=== PATIENT | male | born 1960 | race Caucasian/White ===

== ENCOUNTER 2023-04-25 01:25 | Inpatient (IN) | payer OTHER ==
[2023-04-25] MEDS ORDERED: SODIUM CHLORIDE 0.9% 500 ML INFUS.BAG IV ONE (01:26)
[2023-04-25] MEDS ORDERED: dilTIAZem HCL 50 MG/10 ML - 10 ML VIAL IVPUSH ONE (01:26)
[2023-04-25] MEDS ORDERED: FOLIC ACID INJECTION - 1 MG, THIAMINE HCL 100 MG, MULTIVIT INJECTION ADULT 10 ML in SOD... IVPB ONE ×2 (01:28→02:30)
[2023-04-25] MEDS ORDERED: dilTIAZem HCL 125 MG/25 ML - 25 ML VIAL ONE (01:28)
[2023-04-25] MEDS ORDERED: MAGNESIUM SULF 50% (8.12 MEQ/2 ML-1 GM VIAL) IVPB ONE (01:28)
[2023-04-25] MEDS ORDERED: ASPIRIN 300 MG SUPP.RECT RC ONE (01:29)
[2023-04-25] MEDS ORDERED: LORazepam 2 MG/ML SDV VIAL IVPUSH ONE ×3 (01:30→04:32)
[2023-04-25 01:45] LABS: BASO % 0.7 % (0-2.0); EOS % 5.3 % (0-4.5); HEMATOCRIT 40.9 % (35.4-49); HEMOGLOBIN 13.7 GM/dL (11.7-16.9); LYMPH % 12.8 % (8-40); MCH 29.8 pg (25.7-33.7); MCHC 33.6 g/dl (32.0-35.9); MEAN CELL VOLUME 88.6 fl (80-96); MEAN PLT VOLUME 6.6 fl (7.5-11.1); MONO % 6.5 % (3.8-10.2); NEUT % 74.7 % (42.8-82.8); PLATELET COUNT 326 10^3/uL (134-434); RBC 4.62 M/mm3 (4.00-5.60); RDW 13.1 % (11.9-15.9); WHITE BLOOD COUNT 13.7 K/mm3 (4.0-10.0)
[2023-04-25 01:52] LABS: INR 1.02 (0.83-1.09); PROTHROMBIN TIME (PATIENT) 11.8 SEC (9.7-13.0)
[2023-04-25 02:10] LABS: ARTERIAL BLD GAS O2 SATURATION 98.2 % (95-98); ARTERIAL BLOOD GAS PO2 152.2 mmHg (80-100)
[2023-04-25 02:12] LABS: ARTERIAL BLOOD GAS pH 7.108 (7.350-7.450)
[2023-04-25 02:13] LABS: CHLORIDE 91 mmol/L (98-107); POTASSIUM 4.6 mmol/L (3.5-5.1)
[2023-04-25 02:15] LABS: ALBUMIN 3.6 g/dl (3.4-5.0); CALCIUM 9.4 mg/dL (8.5-10.1)
[2023-04-25 02:16] LABS: BLOOD UREA NITROGEN 14.9 mg/dL (7-18); CO2 18 mmol/L (21-32); GLUCOSE,RANDOM 198 mg/dL (74-106)
[2023-04-25 02:18] LABS: SGPT/ALT 29 U/L (13-61)
[2023-04-25 02:19] LABS: CREATININE 1.1 mg/dL (0.55-1.3)
[2023-04-25 02:20] LABS: BILIRUBIN,TOTAL 0.3 mg/dL (0.2-1); TOT PROT 7.2 g/dl (6.4-8.2)
[2023-04-25 02:21] LABS: ALK PHOS 137 U/L (45-117)
[2023-04-25 02:31] LABS: ANION GAP 19 MMOL/L (8-16); SGOT/AST 23 U/L (15-37); SODIUM 128 mmol/L (136-145)
[2023-04-25 03:02] LABS: LACTIC ACID 8.7 mmol/L (0.4-2.0)
[2023-04-25 04:08] LABS: EPI CELLS 6 /uL (0-25.1); HYALINE CASTS 0 /uL (0-3.1); URINE APPEARANCE CLEAR; URINE BACTERIA 14 /uL (0-1359); URINE BILIRUBIN NEGATIVE (NEGATIVE); URINE COLOR YELLOW; URINE GLUCOSE (UA) 3+ (NEGATIVE); URINE KETONE TRACE (NEGATIVE); URINE LEUK ESTERASE NEGATIVE (NEGATIVE); URINE NITRITE NEGATIVE (NEGATIVE); URINE PROTEIN 2+ (NEGATIVE); URINE RBC 9 /uL (0-23.9); URINE WBC 11 /uL (0-25.8)
[2023-04-25] MEDS ORDERED: ACETAMINOPHEN 325 MG TABLET (FP) PO PRN (05:08)
[2023-04-25] MEDS ORDERED: INSULIN REGULAR HUMAN 100 UNITS/ML *VIAL* (FOR IVP) IVPUSH ONE (05:40)
[2023-04-25] MEDS ORDERED: INSULIN REGULAR 100 UNITS in SODIUM CHLORIDE 99 ML IVPB SCH (05:45)
[2023-04-25] MEDS ORDERED: DEXTROSE 5%-0.45% SALINE 1,000 ML IV SCH (05:45)
[2023-04-25] MEDS ORDERED: METOPROLOL TARTRATE 5 MG/5 ML VIAL IVPUSH STA (05:52)
[2023-04-25 05:56] LABS: LACTIC ACID 2.3 mmol/L (0.4-2.0)
[2023-04-25 07:04] LABS: HEMATOCRIT 39.6 % (35.4-49); MCH 29.6 pg (25.7-33.7); MCHC 32.8 g/dl (32.0-35.9); MEAN CELL VOLUME 90.5 fl (80-96); MEAN PLT VOLUME 6.8 fl (7.5-11.1); PLATELET COUNT 250 10^3/uL (134-434); RBC 4.37 M/mm3 (4.00-5.60)
[2023-04-25 07:07] LABS: ARTERIAL BLD GAS O2 SATURATION 91.2 % (95-98); ARTERIAL BLOOD GAS BASE EXCESS -8.1 mmol/L (-2-2); ARTERIAL BLOOD GAS PO2 70.9 mmHg (80-100); ARTERIAL BLOOD GAS pH 7.234 (7.350-7.450)
[2023-04-25 07:09] LABS: INR 1.01 (0.83-1.09); PROTHROMBIN TIME (PATIENT) 11.7 SEC (9.7-13.0)
[2023-04-25 07:12] LABS: ACTIVATED PTT 30.1 SECONDS (25.2-36.5)
[2023-04-25] MEDS ORDERED: HEPARIN NA (PORCINE) 5,000 UNITS/ML 1ML VIAL IVPUSH PRN ×2 (07:52)
[2023-04-25] MEDS: HEPARIN INFUSION - 25,000 UNITS/500 ML INFUS.BAG IVPB SCH ×2 (08:21→22:28)
[2023-04-25] MEDS: ATORVASTATIN CA 80 MG TABLET (FP) PO SCH (08:27)
[2023-04-25] MEDS ORDERED: INSULIN (NOVOLOG) ASPART 100 UNITS/ML 10ML VIAL ONE ×4 (08:51→23:33)
[2023-04-25] MEDS: INSULIN SLIDING SCALE (NOVOLOG) 1 VIAL SQ SCH ×4 (08:55→23:41)
[2023-04-25] MEDS: levETIRAcetam 500 MG/5 ML INJECTION VIAL IVPB SCH ×3 (08:57→21:29)
[2023-04-25] MEDS: DEXTROSE 5%-LACTATED RINGERS 1,000 ML IV SCH (08:57)
[2023-04-25 09:12] LABS: ANISOCYTOSIS 0; MACROCYTOSIS 0
[2023-04-25 09:14] LABS: POTASSIUM 5.1 mmol/L (3.5-5.1)
[2023-04-25 09:16] LABS: CALCIUM 8.1 mg/dL (8.5-10.1)
[2023-04-25 09:17] LABS: ALBUMIN 3.2 g/dl (3.4-5.0); MAGNESIUM 1.4 mg/dL (1.8-2.4)
[2023-04-25 09:20] LABS: CREATININE 0.9 mg/dL (0.55-1.3); PHOSPHOROUS 3.6 mg/dL (2.5-4.9)
[2023-04-25 09:21] LABS: BILIRUBIN,TOTAL 0.4 mg/dL (0.2-1); TOT PROT 6.6 g/dl (6.4-8.2)
[2023-04-25 09:25] LABS: N-TERMINAL BNP 783.1 pg/ml (5-125)
[2023-04-25] MEDS: CEFTRIAXONE 1 GM in DEXTROSE 5%-WATER - 50 ML IVPB SCH (09:25)
[2023-04-25] MEDS: ASPIRIN 81 MG CHEWABLE TABLETS PO SCH (09:26)
[2023-04-25] MEDS ORDERED: CLOPIDOGREL BISULFATE 75 MG TABLET (FP) PO ONE (09:30)
[2023-04-25] MEDS: METOPROLOL TARTRATE 25 MG TABLET (FP) PO SCH ×2 (09:33→21:29)
[2023-04-25] MEDS ORDERED: ENOXAPARIN NA (PORCINE) 40 MG/0.4 ML DISP.SYRIN SQ SCH (10:00)
[2023-04-25] MEDS ORDERED: MAGNESIUM SULFATE IN WATER 2 GM/50 ML IVPB IVPB ONE (10:30)
[2023-04-25] MEDS: NICOTINE 21 MG/24 HOURS TOPICAL PATCH TD SCH (12:42)
[2023-04-25] MEDS: THIAMINE HCL 200 MG/2 ML VIAL IVPB SCH (13:00)
[2023-04-25] MEDS: MUPIROCIN 2% TOPICAL OINTMENT FOR DECOLONIZATION NS SCH ×2 (19:01→21:45)
[2023-04-25] MEDS: CHLORHEXIDINE GLUCONATE 4% CLEANSER FOR DECOLONIZATION TP SCH (21:29)
[2023-04-26] MEDS: DEXTROSE 5%-LACTATED RINGERS 1,000 ML IV SCH ×3 (03:34→17:42)
[2023-04-26] MEDS ORDERED: INSULIN (NOVOLOG) ASPART 100 UNITS/ML 10ML VIAL ONE ×2 (05:46→11:35)
[2023-04-26] MEDS: INSULIN SLIDING SCALE (NOVOLOG) 1 VIAL SQ SCH ×4 (05:48→23:09)
[2023-04-26] MEDS ORDERED: DEXMEDETOMIDINE PREMIX 400 MCG/100 ML BAG IVPB SCH (07:00)
[2023-04-26 07:09] LABS: POTASSIUM 4.4 mmol/L (3.5-5.1)
[2023-04-26 07:10] LABS: CALCIUM 8.7 mg/dL (8.5-10.1)
[2023-04-26 07:11] LABS: MAGNESIUM 1.5 mg/dL (1.8-2.4)
[2023-04-26 07:13] LABS: ALBUMIN 3.1 g/dl (3.4-5.0); BLOOD UREA NITROGEN 8.9 mg/dL (7-18)
[2023-04-26] MEDS ORDERED: DEXMEDETOMIDINE PREMIX 400 MCG/100 ML BAG IVPB ONE (07:13)
[2023-04-26 07:14] LABS: BASO % 0.1 % (0-2.0); CREATININE 0.7 mg/dL (0.55-1.3); EOS % 0.8 % (0-4.5); HEMATOCRIT 34.8 % (35.4-49); HEMOGLOBIN 11.7 GM/dL (11.7-16.9); LYMPH % 6.6 % (8-40); MCH 30.4 pg (25.7-33.7); MCHC 33.7 g/dl (32.0-35.9); MEAN CELL VOLUME 90.2 fl (80-96); MEAN PLT VOLUME 7.5 fl (7.5-11.1); MONO % 5.1 % (3.8-10.2); NEUT % 87.4 % (42.8-82.8); PLATELET COUNT 249 10^3/uL (134-434); RBC 3.86 M/mm3 (4.00-5.60)
[2023-04-26 07:16] LABS: PHOSPHOROUS 2.6 mg/dL (2.5-4.9); TOT PROT 6.4 g/dl (6.4-8.2)
[2023-04-26 07:17] LABS: BILIRUBIN,TOTAL 0.7 mg/dL (0.2-1)
[2023-04-26] MEDS: LORazepam 2 MG/ML SDV VIAL IVPUSH PRN ×2 (07:17→17:30)
[2023-04-26] MEDS: CEFTRIAXONE 1 GM in DEXTROSE 5%-WATER - 50 ML IVPB SCH (09:24)
[2023-04-26] MEDS: CLOPIDOGREL BISULFATE 75 MG TABLET (FP) PO SCH (09:26)
[2023-04-26] MEDS: ASPIRIN 81 MG CHEWABLE TABLETS PO SCH (09:26)
[2023-04-26] MEDS: METOPROLOL TARTRATE 25 MG TABLET (FP) PO SCH (09:26)
[2023-04-26] MEDS: levETIRAcetam 500 MG/5 ML INJECTION VIAL IVPB SCH (09:27)
[2023-04-26] MEDS: THIAMINE HCL 200 MG/2 ML VIAL IVPB SCH (09:27)
[2023-04-26] MEDS: NICOTINE 21 MG/24 HOURS TOPICAL PATCH TD SCH (09:27)
[2023-04-26] MEDS: MUPIROCIN 2% TOPICAL OINTMENT FOR DECOLONIZATION NS SCH ×2 (09:51→22:37)
[2023-04-26] MEDS ORDERED: MAGNESIUM SULF 50% (8.12 MEQ/2 ML-1 GM VIAL) IVPB ONE (10:04)
[2023-04-26] MEDS: METOPROLOL TARTRATE 50 MG TABLET (FP) PO SCH ×2 (10:50→23:09)
[2023-04-26] MEDS: HEPARIN INFUSION - 25,000 UNITS/500 ML INFUS.BAG IVPB SCH (17:42)
[2023-04-26] MEDS: CHLORHEXIDINE GLUCONATE 4% CLEANSER FOR DECOLONIZATION TP SCH (22:37)
[2023-04-26] MEDS: ATORVASTATIN CA 80 MG TABLET (FP) PO SCH (22:37)
[2023-04-27] MEDS ORDERED: DEXMEDETOMIDINE PREMIX 400 MCG/100 ML BAG IVPB SCH (05:15)
[2023-04-27] MEDS: INSULIN SLIDING SCALE (NOVOLOG) 1 VIAL SQ SCH ×4 (06:20→23:04)
[2023-04-27 06:57] LABS: HEMATOCRIT 35.8 % (35.4-49); HEMOGLOBIN 12.3 GM/dL (11.7-16.9); MCH 30.5 pg (25.7-33.7); MCHC 34.2 g/dl (32.0-35.9); MEAN CELL VOLUME 89.2 fl (80-96); MEAN PLT VOLUME 7.6 fl (7.5-11.1); PLATELET COUNT 187 10^3/uL (134-434); RBC 4.02 M/mm3 (4.00-5.60); RDW 13.2 % (11.9-15.9)
[2023-04-27 07:15] LABS: POTASSIUM 4.1 mmol/L (3.5-5.1)
[2023-04-27 07:19] LABS: BLOOD UREA NITROGEN 7.5 mg/dL (7-18); CALCIUM 8.2 mg/dL (8.5-10.1); MAGNESIUM 1.4 mg/dL (1.8-2.4)
[2023-04-27 07:22] LABS: BILIRUBIN,DIRECT 0.2 mg/dL (0.0-0.2); CREATININE 0.7 mg/dL (0.55-1.3); PHOSPHOROUS 2.6 mg/dL (2.5-4.9)
[2023-04-27 07:23] LABS: BILIRUBIN,TOTAL 0.5 mg/dL (0.2-1); TOT PROT 5.2 g/dl (6.4-8.2)
[2023-04-27 07:27] LABS: ALBUMIN 2.5 g/dl (3.4-5.0)
[2023-04-27] MEDS ORDERED: LORazepam 1 MG TABLET PO PRN (08:12)
[2023-04-27] MEDS: LORazepam 1 MG TABLET PO SCH ×4 (08:25→22:50)
[2023-04-27] MEDS ORDERED: MAGNESIUM SULF 50% (8.12 MEQ/2 ML-1 GM VIAL) IVPB ONE (08:44)
[2023-04-27] MEDS: MUPIROCIN 2% TOPICAL OINTMENT FOR DECOLONIZATION NS SCH ×2 (09:00→22:11)
[2023-04-27] MEDS: METOPROLOL TARTRATE 50 MG TABLET (FP) PO SCH ×2 (09:00→22:11)
[2023-04-27] MEDS: NICOTINE 21 MG/24 HOURS TOPICAL PATCH TD SCH (09:00)
[2023-04-27] MEDS: ASPIRIN 81 MG CHEWABLE TABLETS PO SCH (09:00)
[2023-04-27] MEDS: CLOPIDOGREL BISULFATE 75 MG TABLET (FP) PO SCH (09:00)
[2023-04-27] MEDS: CEFTRIAXONE 1 GM in DEXTROSE 5%-WATER - 50 ML IVPB SCH (09:01)
[2023-04-27] MEDS: SODIUM CHLORIDE 1,000 ML IV SCH ×2 (09:12→22:13)
[2023-04-27] MEDS: LISINOPRIL 5 MG TABLET PO SCH (09:37)
[2023-04-27] MEDS: THIAMINE HCL 200 MG/2 ML VIAL IVPB SCH (09:37)
[2023-04-27] MEDS ORDERED: INSULIN (NOVOLOG) ASPART 100 UNITS/ML 10ML VIAL ONE (11:37)
[2023-04-27 12:42] VITALS: BMI 18.5
[2023-04-27] MEDS: CHLORHEXIDINE GLUCONATE 4% CLEANSER FOR DECOLONIZATION TP SCH (22:11)
[2023-04-27] MEDS: ATORVASTATIN CA 80 MG TABLET (FP) PO SCH (22:11)
[2023-04-28] MEDS: LORazepam 1 MG TABLET PO SCH ×2 (04:52→12:18)
[2023-04-28] MEDS: INSULIN SLIDING SCALE (NOVOLOG) 1 VIAL SQ SCH ×4 (06:04→22:10)
[2023-04-28] MEDS ORDERED: FUROSEMIDE 40 MG/4 ML INJECTABLE VIAL IVPUSH STA (06:10)
[2023-04-28 06:34] LABS: EOS % 1.8 % (0-4.5); HEMATOCRIT 38.5 % (35.4-49); HEMOGLOBIN 13.1 GM/dL (11.7-16.9); LYMPH % 10.4 % (8-40); MCH 30.5 pg (25.7-33.7); MCHC 34.1 g/dl (32.0-35.9); MEAN CELL VOLUME 89.5 fl (80-96); MEAN PLT VOLUME 7.6 fl (7.5-11.1); MONO % 6.7 % (3.8-10.2); NEUT % 80.1 % (42.8-82.8); PLATELET COUNT 229 10^3/uL (134-434); WHITE BLOOD COUNT 10.5 K/mm3 (4.0-10.0)
[2023-04-28 06:58] LABS: POTASSIUM 4.1 mmol/L (3.5-5.1)
[2023-04-28 07:00] LABS: CALCIUM 7.9 mg/dL (8.5-10.1)
[2023-04-28 07:01] LABS: ALBUMIN 2.5 g/dl (3.4-5.0); BLOOD UREA NITROGEN 7.5 mg/dL (7-18); MAGNESIUM 1.5 mg/dL (1.8-2.4)
[2023-04-28 07:03] LABS: PHOSPHOROUS 2.8 mg/dL (2.5-4.9)
[2023-04-28 07:04] LABS: CREATININE 0.6 mg/dL (0.55-1.3)
[2023-04-28 07:05] LABS: BILIRUBIN,TOTAL 0.7 mg/dL (0.2-1); TOT PROT 5.2 g/dl (6.4-8.2)
[2023-04-28 07:08] LABS: N-TERMINAL BNP 23627.1 pg/ml (5-125)
[2023-04-28] MEDS ORDERED: DEXTROSE 50%-WATER 25 GM/50 ML DISP.SYRIN IVPUSH PRN ×2 (07:44→16:08)
[2023-04-28] MEDS ORDERED: ENOXAPARIN NA (PORCINE) 40 MG/0.4 ML DISP.SYRIN SQ SCH (10:00)
[2023-04-28] MEDS ORDERED: MULTIVITAMINS (DAILY MVI) TABLET (FP) PO SCH (10:00)
[2023-04-28] MEDS: CEFTRIAXONE 1 GM in DEXTROSE 5%-WATER - 50 ML IVPB SCH (10:33)
[2023-04-28] MEDS: THIAMINE HCL 200 MG/2 ML VIAL IVPB SCH (10:36)
[2023-04-28] MEDS: CLOPIDOGREL BISULFATE 75 MG TABLET (FP) PO SCH (10:38)
[2023-04-28] MEDS: LISINOPRIL 5 MG TABLET PO SCH (10:38)
[2023-04-28] MEDS: NICOTINE 21 MG/24 HOURS TOPICAL PATCH TD SCH (11:53)
[2023-04-28] MEDS: METOPROLOL TARTRATE 50 MG TABLET (FP) PO SCH ×2 (11:53→21:28)
[2023-04-28] MEDS ORDERED: AMINO ACIDS 4.25%/D5W 1,000 ML IV SCH (13:00)
[2023-04-28] MEDS ORDERED: MAGNESIUM SULF 50% (8.12 MEQ/2 ML-1 GM VIAL) IVPB ONE (14:17)
[2023-04-28] MEDS: ASPIRIN 81 MG CHEWABLE TABLETS PO SCH (14:24)
[2023-04-28] MEDS ORDERED: [UNRECOGNIZED DRUG - OTHER] IVPB SCH (15:30)
[2023-04-28] MEDS ORDERED: THIAMINE HCL IVPB SCH (15:30)
[2023-04-28] MEDS ORDERED: FOLIC ACID IVPB SCH (15:30)
[2023-04-28] MEDS ORDERED: MULTIVIT IVPB SCH (15:30)
[2023-04-28] MEDS ORDERED: LORazepam 1 MG TABLET PO PRN (16:08)
[2023-04-28] MEDS ORDERED: LORazepam 2 MG/ML SDV VIAL IVPUSH PRN (16:16)
[2023-04-28] MEDS: AMINO ACIDS 4.25%/D5W 1,000 ML IV SCH (16:57)
[2023-04-28] MEDS ORDERED: LORazepam 1 MG TABLET PO SCH (17:00)
[2023-04-28] MEDS ORDERED: LORazepam 0.5 MG TABLET PO PRN (17:09)
[2023-04-28] MEDS: FOLIC ACID 5 MG/1 ML IVPB SCH (17:13)
[2023-04-28] MEDS: MULTIVIT INJ. ADULT COMBO WITH VIT K 1 COMBO 10 ML VIAL IV SCH (17:14)
[2023-04-28] MEDS: MUPIROCIN 2% TOPICAL OINTMENT FOR DECOLONIZATION NS SCH (21:28)
[2023-04-28] MEDS: ATORVASTATIN CA 80 MG TABLET (FP) PO SCH (21:28)
[2023-04-28] MEDS: CHLORHEXIDINE GLUCONATE 4% CLEANSER FOR DECOLONIZATION TP SCH (21:29)
[2023-04-28] MEDS ORDERED: LORazepam 2 MG/ML SDV VIAL IVPUSH STA (23:07)
[2023-04-29] MEDS ORDERED: LORazepam 1 MG TABLET PO SCH ×2 (05:00)
[2023-04-29] MEDS: INSULIN SLIDING SCALE (NOVOLOG) 1 VIAL SQ SCH ×4 (06:18→21:32)
[2023-04-29 06:36] LABS: BASO % 0.5 % (0-2.0); EOS % 1.1 % (0-4.5); HEMATOCRIT 36.2 % (35.4-49); HEMOGLOBIN 12.5 GM/dL (11.7-16.9); LYMPH % 13.3 % (8-40); MCH 30.4 pg (25.7-33.7); MCHC 34.4 g/dl (32.0-35.9); MEAN CELL VOLUME 88.4 fl (80-96); MEAN PLT VOLUME 7.6 fl (7.5-11.1); MONO % 9.7 % (3.8-10.2); NEUT % 75.4 % (42.8-82.8); PLATELET COUNT 269 10^3/uL (134-434); RDW 12.7 % (11.9-15.9); WHITE BLOOD COUNT 10.5 K/mm3 (4.0-10.0)
[2023-04-29 06:56] LABS: POTASSIUM 3.3 mmol/L (3.5-5.1)
[2023-04-29 06:58] LABS: ALBUMIN 2.6 g/dl (3.4-5.0); BLOOD UREA NITROGEN 8.1 mg/dL (7-18); CALCIUM 8.1 mg/dL (8.5-10.1)
[2023-04-29 07:02] LABS: CREATININE 0.6 mg/dL (0.55-1.3)
[2023-04-29 07:03] LABS: BILIRUBIN,TOTAL 1.1 mg/dL (0.2-1); TOT PROT 5.5 g/dl (6.4-8.2)
[2023-04-29] MEDS: FOLIC ACID 5 MG/1 ML IVPB SCH (09:31)
[2023-04-29] MEDS: THIAMINE HCL 200 MG/2 ML VIAL IVPB SCH (09:32)
[2023-04-29] MEDS: NICOTINE 21 MG/24 HOURS TOPICAL PATCH TD SCH (09:33)
[2023-04-29] MEDS: ENOXAPARIN NA (PORCINE) 40 MG/0.4 ML DISP.SYRIN SQ SCH (09:33)
[2023-04-29] MEDS: MUPIROCIN 2% TOPICAL OINTMENT FOR DECOLONIZATION NS SCH ×2 (09:33→21:31)
[2023-04-29] MEDS ORDERED: CEFTRIAXONE 1 GM in DEXTROSE 5%-WATER - 50 ML IVPB SCH (10:00)
[2023-04-29] MEDS: ASPIRIN 81 MG CHEWABLE TABLETS PO SCH (12:47)
[2023-04-29] MEDS: CLOPIDOGREL BISULFATE 75 MG TABLET (FP) PO SCH (12:47)
[2023-04-29] MEDS: LISINOPRIL 5 MG TABLET PO SCH (12:47)
[2023-04-29] MEDS: METOPROLOL TARTRATE 50 MG TABLET (FP) PO SCH (12:47)
[2023-04-29] MEDS: KCL 10 MEQ IVPB 10 MEQ/100 ML INFUS.BAG IVPB SCH ×2 (12:56→14:58)
[2023-04-29] MEDS: MULTIVIT INJ. ADULT COMBO WITH VIT K 1 COMBO 10 ML VIAL IV SCH (14:57)
[2023-04-29] MEDS: AMINO ACIDS 4.25%/D5W 1,000 ML IV SCH (17:40)
[2023-04-29] MEDS: METOPROLOL TARTRATE 5 MG/5 ML VIAL IVPB SCH (21:31)
[2023-04-29] MEDS: CHLORHEXIDINE GLUCONATE 4% CLEANSER FOR DECOLONIZATION TP SCH (21:32)
[2023-04-29] MEDS: ATORVASTATIN CA 80 MG TABLET (FP) PO SCH (21:32)
[2023-04-30] MEDS ORDERED: LORazepam 0.5 MG TABLET PO PRN ×2
[2023-04-30] MEDS: METOPROLOL TARTRATE 5 MG/5 ML VIAL IVPB SCH ×2 (03:32→09:42)
[2023-04-30] MEDS ORDERED: LORazepam 0.5 MG TABLET PO SCH ×2 (05:00)
[2023-04-30] MEDS: INSULIN SLIDING SCALE (NOVOLOG) 1 VIAL SQ SCH ×4 (06:07→21:02)
[2023-04-30 07:05] LABS: BASO % 0.7 % (0-2.0); HEMATOCRIT 34.4 % (35.4-49); HEMOGLOBIN 11.8 GM/dL (11.7-16.9); LYMPH % 12.2 % (8-40); MCH 29.9 pg (25.7-33.7); MCHC 34.4 g/dl (32.0-35.9); MEAN PLT VOLUME 7.6 fl (7.5-11.1); MONO % 6.5 % (3.8-10.2); NEUT % 79.6 % (42.8-82.8); PLATELET COUNT 261 10^3/uL (134-434); RBC 3.96 M/mm3 (4.00-5.60); WHITE BLOOD COUNT 10.4 K/mm3 (4.0-10.0)
[2023-04-30 07:23] LABS: ALBUMIN 2.4 g/dl (3.4-5.0); BLOOD UREA NITROGEN 7.1 mg/dL (7-18); CALCIUM 7.9 mg/dL (8.5-10.1); MAGNESIUM 1.2 mg/dL (1.8-2.4)
[2023-04-30 07:26] LABS: CREATININE 0.5 mg/dL (0.55-1.3)
[2023-04-30 07:28] LABS: BILIRUBIN,TOTAL 0.7 mg/dL (0.2-1)
[2023-04-30] MEDS ORDERED: MAGNESIUM SULF 50% (8.12 MEQ/2 ML-1 GM VIAL) IVPB ONE (09:00)
[2023-04-30] MEDS: KCL 10 MEQ IVPB 10 MEQ/100 ML INFUS.BAG IVPB SCH ×3 (09:39→14:01)
[2023-04-30] MEDS: ENOXAPARIN NA (PORCINE) 40 MG/0.4 ML DISP.SYRIN SQ SCH (09:44)
[2023-04-30] MEDS: NICOTINE 21 MG/24 HOURS TOPICAL PATCH TD SCH (09:44)
[2023-04-30] MEDS: THIAMINE HCL 200 MG/2 ML VIAL IVPB SCH ×2 (09:45→22:00)
[2023-04-30] MEDS: ASPIRIN 81 MG CHEWABLE TABLETS PO SCH (10:00)
[2023-04-30] MEDS: CLOPIDOGREL BISULFATE 75 MG TABLET (FP) PO SCH (10:58)
[2023-04-30] MEDS: LISINOPRIL 5 MG TABLET PO SCH (10:59)
[2023-04-30] MEDS ORDERED: ASPIRIN 300 MG SUPP.RECT RC SCH (12:30)
[2023-04-30] MEDS ORDERED: ASPIRIN COATED 81 MG TABLET.EC PO SCH (14:00)
[2023-04-30] MEDS: FOLIC ACID 5 MG/1 ML IVPB SCH (18:48)
[2023-04-30] MEDS: AMINO ACIDS 4.25%/D5W 1,000 ML IV SCH (18:49)
[2023-04-30] MEDS: MULTIVIT INJ. ADULT COMBO WITH VIT K 1 COMBO 10 ML VIAL IV SCH (18:49)
[2023-04-30] MEDS: COLLAGENASE CLOSTRIDIUM HIST. 30 GRAMS TUBE TP SCH (19:23)
[2023-04-30] MEDS: DOCUSATE SODIUM 100 MG CAPSULE (FP) PO SCH (21:01)
[2023-04-30] MEDS: ATORVASTATIN CA 80 MG TABLET (FP) PO SCH (21:01)
[2023-04-30] MEDS: METOPROLOL TARTRATE 50 MG TABLET (FP) PO SCH (21:02)
[2023-04-30] MEDS: CHLORHEXIDINE GLUCONATE 4% CLEANSER FOR DECOLONIZATION TP SCH (21:02)
[2023-05-01] MEDS ORDERED: LORazepam 0.5 MG TABLET PO ONE ×2 (05:00)
[2023-05-01] MEDS: DOCUSATE SODIUM 100 MG CAPSULE (FP) PO SCH ×3 (05:50→21:11)
[2023-05-01] MEDS: THIAMINE HCL 200 MG/2 ML VIAL IVPB SCH ×3 (05:50→21:12)
[2023-05-01] MEDS: INSULIN SLIDING SCALE (NOVOLOG) 1 VIAL SQ SCH ×4 (06:31→21:12)
[2023-05-01 07:08] LABS: BASO % 0.6 % (0-2.0); EOS % 1.3 % (0-4.5); HEMATOCRIT 31.2 % (35.4-49); HEMOGLOBIN 10.9 GM/dL (11.7-16.9); LYMPH % 11.2 % (8-40); MCH 30.4 pg (25.7-33.7); MCHC 34.9 g/dl (32.0-35.9); MEAN PLT VOLUME 8.1 fl (7.5-11.1); MONO % 6.9 % (3.8-10.2); PLATELET COUNT 244 10^3/uL (134-434); RBC 3.58 M/mm3 (4.00-5.60)
[2023-05-01 07:17] LABS: POTASSIUM 3.2 mmol/L (3.5-5.1)
[2023-05-01 07:20] LABS: CALCIUM 7.8 mg/dL (8.5-10.1)
[2023-05-01 07:21] LABS: ALBUMIN 2.2 g/dl (3.4-5.0); BLOOD UREA NITROGEN 13.4 mg/dL (7-18); MAGNESIUM 1.5 mg/dL (1.8-2.4)
[2023-05-01 07:24] LABS: CREATININE 0.5 mg/dL (0.55-1.3)
[2023-05-01 07:25] LABS: BILIRUBIN,TOTAL 0.7 mg/dL (0.2-1)
[2023-05-01] MEDS ORDERED: MAGNESIUM OXIDE 400 MG TABLET (FP) PO ONE (07:33)
[2023-05-01] MEDS ORDERED: LORazepam 2 MG/ML SDV VIAL IVPUSH PRN (07:35)
[2023-05-01 08:06] LABS: PHOSPHOROUS 2.8 mg/dL (2.5-4.9)
[2023-05-01] MEDS: NICOTINE 21 MG/24 HOURS TOPICAL PATCH TD SCH (09:30)
[2023-05-01] MEDS: ASPIRIN 81 MG CHEWABLE TABLETS PO SCH (09:30)
[2023-05-01] MEDS: KCL 10 MEQ IVPB 10 MEQ/100 ML INFUS.BAG IVPB SCH ×2 (09:30→10:42)
[2023-05-01] MEDS: METOPROLOL TARTRATE 50 MG TABLET (FP) PO SCH (09:31)
[2023-05-01] MEDS: LISINOPRIL 5 MG TABLET PO SCH (09:31)
[2023-05-01] MEDS: CLOPIDOGREL BISULFATE 75 MG TABLET (FP) PO SCH (09:31)
[2023-05-01] MEDS: ENOXAPARIN NA (PORCINE) 40 MG/0.4 ML DISP.SYRIN SQ SCH (09:32)
[2023-05-01] MEDS: FOLIC ACID 5 MG/1 ML IVPB SCH (09:32)
[2023-05-01] MEDS: MULTIVIT INJ. ADULT COMBO WITH VIT K 1 COMBO 10 ML VIAL IV SCH (09:32)
[2023-05-01] MEDS ORDERED: POTASSIUM CHLORIDE TABS 20 MEQ TABLET.ER (FP) PO SCH (10:00)
[2023-05-01] MEDS: COLLAGENASE CLOSTRIDIUM HIST. 30 GRAMS TUBE TP SCH (10:42)
[2023-05-01] MEDS ORDERED: INSULIN (NOVOLOG) ASPART 100 UNITS/ML 10ML VIAL ONE ×2 (10:49→16:05)
[2023-05-01] MEDS ORDERED: SODIUM CHLORIDE 500 ML IV STA (14:19)
[2023-05-01] MEDS: ATORVASTATIN CA 80 MG TABLET (FP) PO SCH (21:11)
[2023-05-01] MEDS: METOPROLOL TARTRATE 25 MG TABLET (FP) PO SCH (21:12)
[2023-05-01] MEDS: CHLORHEXIDINE GLUCONATE 4% CLEANSER FOR DECOLONIZATION TP SCH (21:12)
[2023-05-01] MEDS: MELATONIN 5 MG TABLETS PO PRN (21:12)
[2023-05-02] MEDS: DOCUSATE SODIUM 100 MG CAPSULE (FP) PO SCH ×3 (05:56→21:23)
[2023-05-02] MEDS: THIAMINE HCL 200 MG/2 ML VIAL IVPB SCH ×3 (05:56→20:47)
[2023-05-02] MEDS: INSULIN SLIDING SCALE (NOVOLOG) 1 VIAL SQ SCH ×4 (06:05→22:01)
[2023-05-02 06:32] LABS: BASO % 1.1 % (0-2.0); EOS % 2.2 % (0-4.5); HEMATOCRIT 33.5 % (35.4-49); HEMOGLOBIN 11.3 GM/dL (11.7-16.9); LYMPH % 13.9 % (8-40); MCHC 33.9 g/dl (32.0-35.9); MEAN CELL VOLUME 88.7 fl (80-96); MEAN PLT VOLUME 8.1 fl (7.5-11.1); MONO % 9.7 % (3.8-10.2); NEUT % 73.1 % (42.8-82.8); PLATELET COUNT 250 10^3/uL (134-434); RBC 3.77 M/mm3 (4.00-5.60); RDW 13.4 % (11.9-15.9); WHITE BLOOD COUNT 9.5 K/mm3 (4.0-10.0)
[2023-05-02 06:41] LABS: POTASSIUM 4.2 mmol/L (3.5-5.1)
[2023-05-02 06:44] LABS: CALCIUM 8.1 mg/dL (8.5-10.1)
[2023-05-02 06:45] LABS: ALBUMIN 2.4 g/dl (3.4-5.0); BLOOD UREA NITROGEN 9.8 mg/dL (7-18)
[2023-05-02 06:46] LABS: MAGNESIUM 1.6 mg/dL (1.8-2.4)
[2023-05-02 06:48] LABS: CREATININE 0.5 mg/dL (0.55-1.3)
[2023-05-02 06:49] LABS: BILIRUBIN,TOTAL 0.6 mg/dL (0.2-1)
[2023-05-02 06:50] LABS: TOT PROT 5.2 g/dl (6.4-8.2)
[2023-05-02] MEDS: METOPROLOL TARTRATE 25 MG TABLET (FP) PO SCH ×2 (09:58→21:23)
[2023-05-02] MEDS: ENOXAPARIN NA (PORCINE) 40 MG/0.4 ML DISP.SYRIN SQ SCH (09:58)
[2023-05-02] MEDS: FOLIC ACID 5 MG/1 ML IVPB SCH (09:58)
[2023-05-02] MEDS: ASPIRIN 81 MG CHEWABLE TABLETS PO SCH (09:59)
[2023-05-02] MEDS: MULTIVIT INJ. ADULT COMBO WITH VIT K 1 COMBO 10 ML VIAL IV SCH (09:59)
[2023-05-02] MEDS: NICOTINE 21 MG/24 HOURS TOPICAL PATCH TD SCH (09:59)
[2023-05-02] MEDS: COLLAGENASE CLOSTRIDIUM HIST. 30 GRAMS TUBE TP SCH (09:59)
[2023-05-02] MEDS: CLOPIDOGREL BISULFATE 75 MG TABLET (FP) PO SCH (09:59)
[2023-05-02] MEDS: MAGNESIUM OXIDE 400 MG TABLET (FP) PO SCH ×2 (09:59→21:23)
[2023-05-02] MEDS ORDERED: INSULIN (NOVOLOG) ASPART 100 UNITS/ML 10ML VIAL ONE ×3 (11:35→17:40)
[2023-05-02] MEDS: SPIRONOLACTONE 25 MG TABLET PO SCH (11:36)
[2023-05-02] MEDS: ACETAMINOPHEN 325 MG TABLET (FP) PO PRN (17:26)
[2023-05-02] MEDS: ATORVASTATIN CA 80 MG TABLET (FP) PO SCH (21:23)
[2023-05-02] MEDS: CHLORHEXIDINE GLUCONATE 4% CLEANSER FOR DECOLONIZATION TP SCH (21:23)
[2023-05-02] MEDS: MELATONIN 5 MG TABLETS PO PRN (22:04)
[2023-05-03] MEDS: THIAMINE HCL 200 MG/2 ML VIAL IVPB SCH (04:45)
[2023-05-03] MEDS: DOCUSATE SODIUM 100 MG CAPSULE (FP) PO SCH ×3 (05:24→21:20)
[2023-05-03] MEDS ORDERED: INSULIN (NOVOLOG) ASPART 100 UNITS/ML 10ML VIAL ONE ×4 (06:33→21:38)
[2023-05-03] MEDS: INSULIN SLIDING SCALE (NOVOLOG) 1 VIAL SQ SCH ×4 (06:35→21:44)
[2023-05-03 07:26] LABS: BASO % 0.9 % (0-2.0); EOS % 2.6 % (0-4.5); HEMATOCRIT 33.2 % (35.4-49); HEMOGLOBIN 11.5 GM/dL (11.7-16.9); MCH 30.2 pg (25.7-33.7); MCHC 34.6 g/dl (32.0-35.9); MEAN CELL VOLUME 87.5 fl (80-96); MEAN PLT VOLUME 7.7 fl (7.5-11.1); MONO % 11.1 % (3.8-10.2); NEUT % 71.4 % (42.8-82.8); PLATELET COUNT 263 10^3/uL (134-434); RBC 3.79 M/mm3 (4.00-5.60); RDW 13.8 % (11.9-15.9); WHITE BLOOD COUNT 10.1 K/mm3 (4.0-10.0)
[2023-05-03 07:50] LABS: POTASSIUM 4.5 mmol/L (3.5-5.1)
[2023-05-03 08:00] LABS: CALCIUM 8.1 mg/dL (8.5-10.1)
[2023-05-03 08:01] LABS: ALBUMIN 2.5 g/dl (3.4-5.0); BLOOD UREA NITROGEN 7.8 mg/dL (7-18)
[2023-05-03 08:03] LABS: MAGNESIUM 1.7 mg/dL (1.8-2.4)
[2023-05-03 08:05] LABS: CREATININE 0.5 mg/dL (0.55-1.3)
[2023-05-03 08:07] LABS: TOT PROT 5.4 g/dl (6.4-8.2)
[2023-05-03] MEDS: CLOPIDOGREL BISULFATE 75 MG TABLET (FP) PO SCH (09:57)
[2023-05-03] MEDS: NICOTINE 21 MG/24 HOURS TOPICAL PATCH TD SCH (09:57)
[2023-05-03] MEDS: METOPROLOL TARTRATE 25 MG TABLET (FP) PO SCH ×2 (09:58→21:22)
[2023-05-03] MEDS: SPIRONOLACTONE 25 MG TABLET PO SCH (09:58)
[2023-05-03] MEDS: ASPIRIN 81 MG CHEWABLE TABLETS PO SCH (09:58)
[2023-05-03] MEDS: ENOXAPARIN NA (PORCINE) 40 MG/0.4 ML DISP.SYRIN SQ SCH (09:58)
[2023-05-03] MEDS: COLLAGENASE CLOSTRIDIUM HIST. 30 GRAMS TUBE TP SCH (09:58)
[2023-05-03] MEDS: MAGNESIUM OXIDE 400 MG TABLET (FP) PO SCH ×2 (09:58→21:20)
[2023-05-03] MEDS: FOLIC ACID 5 MG/1 ML IVPB SCH (12:30)
[2023-05-03] MEDS: MELATONIN 5 MG TABLETS PO PRN (21:20)
[2023-05-03] MEDS: ATORVASTATIN CA 80 MG TABLET (FP) PO SCH (21:21)
[2023-05-03] MEDS: CHLORHEXIDINE GLUCONATE 4% CLEANSER FOR DECOLONIZATION TP SCH (21:22)
[2023-05-04] MEDS: DOCUSATE SODIUM 100 MG CAPSULE (FP) PO SCH ×3 (05:11→22:24)
[2023-05-04] MEDS: INSULIN SLIDING SCALE (NOVOLOG) 1 VIAL SQ SCH ×4 (06:39→22:23)
[2023-05-04] MEDS: NICOTINE 21 MG/24 HOURS TOPICAL PATCH TD SCH (09:11)
[2023-05-04] MEDS: ASPIRIN 81 MG CHEWABLE TABLETS PO SCH (09:11)
[2023-05-04] MEDS: FOLIC ACID 1 MG TABLET (FP) PO SCH (09:11)
[2023-05-04] MEDS: METOPROLOL TARTRATE 25 MG TABLET (FP) PO SCH ×2 (09:11→22:24)
[2023-05-04] MEDS: SPIRONOLACTONE 25 MG TABLET PO SCH (09:11)
[2023-05-04] MEDS: THIAMINE HCL 100 MG TABLET (FP) PO SCH (09:11)
[2023-05-04] MEDS: MAGNESIUM OXIDE 400 MG TABLET (FP) PO SCH ×2 (09:11→22:24)
[2023-05-04] MEDS: CLOPIDOGREL BISULFATE 75 MG TABLET (FP) PO SCH (09:11)
[2023-05-04] MEDS: ENOXAPARIN NA (PORCINE) 40 MG/0.4 ML DISP.SYRIN SQ SCH (09:11)
[2023-05-04] MEDS: SACUBITRIL/VALSARTAN 24 MG-26 MG TABLET PO SCH ×2 (09:11→22:24)
[2023-05-04] MEDS: COLLAGENASE CLOSTRIDIUM HIST. 30 GRAMS TUBE TP SCH (09:20)
[2023-05-04] MEDS ORDERED: INSULIN (NOVOLOG) ASPART 100 UNITS/ML 10ML VIAL ONE ×2 (11:18→16:38)
[2023-05-04] MEDS: CHLORHEXIDINE GLUCONATE 4% CLEANSER FOR DECOLONIZATION TP SCH (22:24)
[2023-05-04] MEDS: ATORVASTATIN CA 80 MG TABLET (FP) PO SCH (22:24)
[2023-05-05] MEDS ORDERED: INSULIN (NOVOLOG) ASPART 100 UNITS/ML 10ML VIAL ONE ×3 (06:15→16:27)
[2023-05-05] MEDS: INSULIN SLIDING SCALE (NOVOLOG) 1 VIAL SQ SCH ×4 (06:16→21:41)
[2023-05-05] MEDS: DOCUSATE SODIUM 100 MG CAPSULE (FP) PO SCH ×3 (06:16→21:12)
[2023-05-05 07:51] LABS: HEMATOCRIT 38.5 % (35.4-49); HEMOGLOBIN 12.9 GM/dL (11.7-16.9); LYMPH % 14.4 % (8-40); MCHC 33.4 g/dl (32.0-35.9); MEAN CELL VOLUME 89.8 fl (80-96); MEAN PLT VOLUME 8.5 fl (7.5-11.1); MONO % 8.9 % (3.8-10.2); NEUT % 73.2 % (42.8-82.8); PLATELET COUNT 300 10^3/uL (134-434); RBC 4.29 M/mm3 (4.00-5.60); RDW 13.9 % (11.9-15.9); WHITE BLOOD COUNT 10.1 K/mm3 (4.0-10.0)
[2023-05-05 07:52] LABS: BASO % 1.1 % (0-2.0); EOS % 2.4 % (0-4.5)
[2023-05-05 07:57] LABS: POTASSIUM 5.5 mmol/L (3.5-5.1)
[2023-05-05 08:02] LABS: ALBUMIN 2.5 g/dl (3.4-5.0); CALCIUM 8.7 mg/dL (8.5-10.1)
[2023-05-05 08:03] LABS: BLOOD UREA NITROGEN 9.3 mg/dL (7-18); MAGNESIUM 1.7 mg/dL (1.8-2.4)
[2023-05-05 08:05] LABS: CREATININE 0.6 mg/dL (0.55-1.3)
[2023-05-05 08:07] LABS: BILIRUBIN,TOTAL 0.6 mg/dL (0.2-1); TOT PROT 5.7 g/dl (6.4-8.2)
[2023-05-05] MEDS: ASPIRIN 81 MG CHEWABLE TABLETS PO SCH (09:25)
[2023-05-05] MEDS: THIAMINE HCL 100 MG TABLET (FP) PO SCH (09:25)
[2023-05-05] MEDS: CLOPIDOGREL BISULFATE 75 MG TABLET (FP) PO SCH (09:25)
[2023-05-05] MEDS: MAGNESIUM OXIDE 400 MG TABLET (FP) PO SCH ×2 (09:25→21:12)
[2023-05-05] MEDS: METOPROLOL TARTRATE 25 MG TABLET (FP) PO SCH ×2 (09:25→21:12)
[2023-05-05] MEDS: NICOTINE 21 MG/24 HOURS TOPICAL PATCH TD SCH (09:25)
[2023-05-05] MEDS: SACUBITRIL/VALSARTAN 24 MG-26 MG TABLET PO SCH ×2 (09:25→21:11)
[2023-05-05] MEDS: SPIRONOLACTONE 25 MG TABLET PO SCH (09:25)
[2023-05-05] MEDS: FOLIC ACID 1 MG TABLET (FP) PO SCH (09:25)
[2023-05-05] MEDS: ENOXAPARIN NA (PORCINE) 40 MG/0.4 ML DISP.SYRIN SQ SCH (09:25)
[2023-05-05] MEDS: COLLAGENASE CLOSTRIDIUM HIST. 30 GRAMS TUBE TP SCH ×2 (09:26→10:19)
[2023-05-05] MEDS: SODIUM ZIRCONIUM CYCLOSILICATE (LOKELMA) 5 GM PACKET PO SCH (10:14)
[2023-05-05] MEDS: MELATONIN 5 MG TABLETS PO PRN (21:12)
[2023-05-05] MEDS: CHLORHEXIDINE GLUCONATE 4% CLEANSER FOR DECOLONIZATION TP SCH (21:12)
[2023-05-05] MEDS: ATORVASTATIN CA 80 MG TABLET (FP) PO SCH (21:12)
[2023-05-06] MEDS: ACETAMINOPHEN 325 MG TABLET (FP) PO PRN ×2 (02:30→13:51)
[2023-05-06] MEDS: INSULIN SLIDING SCALE (NOVOLOG) 1 VIAL SQ SCH ×4 (06:02→21:39)
[2023-05-06] MEDS: DOCUSATE SODIUM 100 MG CAPSULE (FP) PO SCH ×3 (06:02→21:39)
[2023-05-06 07:47] LABS: BASO % 1.2 % (0-2.0); EOS % 2.5 % (0-4.5); HEMATOCRIT 37.4 % (35.4-49); HEMOGLOBIN 12.7 GM/dL (11.7-16.9); LYMPH % 17.1 % (8-40); MCH 30.4 pg (25.7-33.7); MCHC 33.9 g/dl (32.0-35.9); MEAN CELL VOLUME 89.6 fl (80-96); MEAN PLT VOLUME 8.5 fl (7.5-11.1); MONO % 8.1 % (3.8-10.2); NEUT % 71.1 % (42.8-82.8); PLATELET COUNT 287 10^3/uL (134-434); RBC 4.17 M/mm3 (4.00-5.60); RDW 13.5 % (11.9-15.9); WHITE BLOOD COUNT 8.5 K/mm3 (4.0-10.0)
[2023-05-06 08:06] LABS: POTASSIUM 4.8 mmol/L (3.5-5.1)
[2023-05-06 08:11] LABS: CALCIUM 8.4 mg/dL (8.5-10.1)
[2023-05-06 08:12] LABS: ALBUMIN 2.4 g/dl (3.4-5.0); BLOOD UREA NITROGEN 8.6 mg/dL (7-18); MAGNESIUM 1.7 mg/dL (1.8-2.4)
[2023-05-06 08:15] LABS: CREATININE 0.5 mg/dL (0.55-1.3)
[2023-05-06 08:16] LABS: TOT PROT 5.4 g/dl (6.4-8.2)
[2023-05-06 08:17] LABS: BILIRUBIN,TOTAL 0.6 mg/dL (0.2-1)
[2023-05-06] MEDS: SODIUM ZIRCONIUM CYCLOSILICATE (LOKELMA) 5 GM PACKET PO SCH (09:39)
[2023-05-06] MEDS: SACUBITRIL/VALSARTAN 24 MG-26 MG TABLET PO SCH ×2 (09:39→21:39)
[2023-05-06] MEDS: ENOXAPARIN NA (PORCINE) 40 MG/0.4 ML DISP.SYRIN SQ SCH (09:39)
[2023-05-06] MEDS: MAGNESIUM OXIDE 400 MG TABLET (FP) PO SCH ×2 (09:40→21:39)
[2023-05-06] MEDS: SPIRONOLACTONE 25 MG TABLET PO SCH (09:40)
[2023-05-06] MEDS: CLOPIDOGREL BISULFATE 75 MG TABLET (FP) PO SCH (09:40)
[2023-05-06] MEDS: NICOTINE 21 MG/24 HOURS TOPICAL PATCH TD SCH (09:40)
[2023-05-06] MEDS: THIAMINE HCL 100 MG TABLET (FP) PO SCH (09:40)
[2023-05-06] MEDS: FOLIC ACID 1 MG TABLET (FP) PO SCH (09:40)
[2023-05-06] MEDS: ASPIRIN 81 MG CHEWABLE TABLETS PO SCH (09:40)
[2023-05-06] MEDS: METOPROLOL TARTRATE 25 MG TABLET (FP) PO SCH ×2 (10:01→21:39)
[2023-05-06] MEDS: COLLAGENASE CLOSTRIDIUM HIST. 30 GRAMS TUBE TP SCH (10:02)
[2023-05-06] MEDS ORDERED: BISACODYL 10 MG SUPP.RECT PR PRN (17:11)
[2023-05-06] MEDS ORDERED: INSULIN (NOVOLOG) ASPART 100 UNITS/ML 10ML VIAL ONE ×2 (17:14→21:37)
[2023-05-06] MEDS: ATORVASTATIN CA 80 MG TABLET (FP) PO SCH (21:39)
[2023-05-06] MEDS: MELATONIN 5 MG TABLETS PO PRN (21:39)
[2023-05-06] MEDS: CHLORHEXIDINE GLUCONATE 4% CLEANSER FOR DECOLONIZATION TP SCH (21:39)
[2023-05-07] MEDS: DOCUSATE SODIUM 100 MG CAPSULE (FP) PO SCH ×3 (05:38→21:32)
[2023-05-07] MEDS: INSULIN SLIDING SCALE (NOVOLOG) 1 VIAL SQ SCH ×4 (06:22→21:02)
[2023-05-07] MEDS: FOLIC ACID 1 MG TABLET (FP) PO SCH (09:19)
[2023-05-07] MEDS: SPIRONOLACTONE 25 MG TABLET PO SCH (09:19)
[2023-05-07] MEDS: METOPROLOL TARTRATE 25 MG TABLET (FP) PO SCH ×2 (09:19→21:32)
[2023-05-07] MEDS: ENOXAPARIN NA (PORCINE) 40 MG/0.4 ML DISP.SYRIN SQ SCH (09:19)
[2023-05-07] MEDS: SACUBITRIL/VALSARTAN 24 MG-26 MG TABLET PO SCH ×2 (09:20→21:32)
[2023-05-07] MEDS: MAGNESIUM OXIDE 400 MG TABLET (FP) PO SCH ×2 (09:20→21:32)
[2023-05-07] MEDS: SODIUM ZIRCONIUM CYCLOSILICATE (LOKELMA) 5 GM PACKET PO SCH (09:20)
[2023-05-07] MEDS: COLLAGENASE CLOSTRIDIUM HIST. 30 GRAMS TUBE TP SCH (09:20)
[2023-05-07] MEDS: ASPIRIN 81 MG CHEWABLE TABLETS PO SCH (09:20)
[2023-05-07] MEDS: NICOTINE 21 MG/24 HOURS TOPICAL PATCH TD SCH (09:20)
[2023-05-07] MEDS: CLOPIDOGREL BISULFATE 75 MG TABLET (FP) PO SCH (09:20)
[2023-05-07] MEDS: THIAMINE HCL 100 MG TABLET (FP) PO SCH (09:20)
[2023-05-07] MEDS ORDERED: INSULIN (NOVOLOG) ASPART 100 UNITS/ML 10ML VIAL ONE (20:58)
[2023-05-07] MEDS: CHLORHEXIDINE GLUCONATE 4% CLEANSER FOR DECOLONIZATION TP SCH (21:33)
[2023-05-07] MEDS: MELATONIN 5 MG TABLETS PO PRN (21:33)
[2023-05-07] MEDS: ATORVASTATIN CA 80 MG TABLET (FP) PO SCH (21:39)
[2023-05-07] MEDS: ACETAMINOPHEN 325 MG TABLET (FP) PO PRN (21:48)
[2023-05-08] MEDS: DOCUSATE SODIUM 100 MG CAPSULE (FP) PO SCH ×3 (05:52→21:04)
[2023-05-08] MEDS: INSULIN SLIDING SCALE (NOVOLOG) 1 VIAL SQ SCH ×4 (06:31→21:03)
[2023-05-08 09:55] LABS: BASO % 0.7 % (0-2.0); HEMATOCRIT 37.7 % (35.4-49); HEMOGLOBIN 12.9 GM/dL (11.7-16.9); LYMPH % 16.1 % (8-40); MCH 30.3 pg (25.7-33.7); MCHC 34.2 g/dl (32.0-35.9); MEAN CELL VOLUME 88.5 fl (80-96); MEAN PLT VOLUME 8.2 fl (7.5-11.1); MONO % 7.3 % (3.8-10.2); NEUT % 72.9 % (42.8-82.8); PLATELET COUNT 287 10^3/uL (134-434); RBC 4.26 M/mm3 (4.00-5.60); RDW 13.8 % (11.9-15.9); WHITE BLOOD COUNT 8.3 K/mm3 (4.0-10.0)
[2023-05-08 10:16] LABS: POTASSIUM 5.8 mmol/L (3.5-5.1)
[2023-05-08 10:18] LABS: BLOOD UREA NITROGEN 12.3 mg/dL (7-18); CALCIUM 8.8 mg/dL (8.5-10.1)
[2023-05-08] MEDS: MAGNESIUM OXIDE 400 MG TABLET (FP) PO SCH ×2 (10:18→21:03)
[2023-05-08] MEDS: ENOXAPARIN NA (PORCINE) 40 MG/0.4 ML DISP.SYRIN SQ SCH (10:18)
[2023-05-08] MEDS: SACUBITRIL/VALSARTAN 24 MG-26 MG TABLET PO SCH ×2 (10:18→21:03)
[2023-05-08] MEDS: METOPROLOL TARTRATE 25 MG TABLET (FP) PO SCH ×2 (10:18→21:03)
[2023-05-08] MEDS: THIAMINE HCL 100 MG TABLET (FP) PO SCH (10:18)
[2023-05-08] MEDS: CLOPIDOGREL BISULFATE 75 MG TABLET (FP) PO SCH (10:18)
[2023-05-08] MEDS: SPIRONOLACTONE 25 MG TABLET PO SCH (10:18)
[2023-05-08] MEDS: FOLIC ACID 1 MG TABLET (FP) PO SCH (10:18)
[2023-05-08] MEDS: NICOTINE 21 MG/24 HOURS TOPICAL PATCH TD SCH (10:18)
[2023-05-08 10:19] LABS: ALBUMIN 2.6 g/dl (3.4-5.0); MAGNESIUM 2.1 mg/dL (1.8-2.4)
[2023-05-08] MEDS: COLLAGENASE CLOSTRIDIUM HIST. 30 GRAMS TUBE TP SCH (10:19)
[2023-05-08 10:22] LABS: CREATININE 0.7 mg/dL (0.55-1.3)
[2023-05-08 10:24] LABS: BILIRUBIN,TOTAL 0.6 mg/dL (0.2-1)
[2023-05-08] MEDS: ASPIRIN 81 MG CHEWABLE TABLETS PO SCH (10:30)
[2023-05-08 10:44] VITALS: RESP 20
[2023-05-08] MEDS ORDERED: INSULIN (NOVOLOG) ASPART 100 UNITS/ML 10ML VIAL ONE ×3 (11:47→21:01)
[2023-05-08] MEDS: ACETAMINOPHEN 325 MG TABLET (FP) PO PRN (19:33)
[2023-05-08] MEDS: CHLORHEXIDINE GLUCONATE 4% CLEANSER FOR DECOLONIZATION TP SCH (21:03)
[2023-05-08] MEDS: ATORVASTATIN CA 80 MG TABLET (FP) PO SCH (21:03)
[2023-05-08 23:51] VITALS: BP 127/70; PULSE 67; TEMP 98.1
== END 2023-05-08 23:30 | DRG 280 ==
LOC: JER 01:25 → JERBED 04:16 → JICU 05:09 → J2W 04-28 15:51
PROVIDERS: ADMIT Internal Medicine Pulmonary Disease; ATTEND Nurse Practitioner Acute Care
DX: I21.4 Non-ST elevation (NSTEMI) myocardial infarction (principal); E43 Unspecified severe protein-calorie malnutrition; I50.43 Acute on chronic combined systolic (congestive) and diastolic (congestive) heart failure; G93.41 Metabolic encephalopathy; E87.1 Hypo-osmolality and hyponatremia; I69.354 Hemiplegia and hemiparesis following cerebral infarction affecting left non-dominant side; I47.20 Ventricular tachycardia, unspecified; N39.0 Urinary tract infection, site not specified; F10.239 Alcohol dependence with withdrawal, unspecified; Z68.1 Body mass index [BMI] 19.9 or less, adult; L97.528 Non-pressure chronic ulcer of other part of left foot with other specified severity; E11.621 Type 2 diabetes mellitus with foot ulcer; E78.5 Hyperlipidemia, unspecified; R47.81 Slurred speech; I25.119 Atherosclerotic heart disease of native coronary artery with unspecified angina pectoris; I11.0 Hypertensive heart disease with heart failure; R94.5 Abnormal results of liver function studies; E87.5 Hyperkalemia; I48.91 Unspecified atrial fibrillation; Z95.1 Presence of aortocoronary bypass graft; Z95.5 Presence of coronary angioplasty implant and graft
CPT/HCPCS: 36415; 36600; 70450-TC; 70551-TC; 71045-TC-FY; 74230-TC-FY; 80048; 80053; 80061; 80076; 80307; 81003; 82010; 82140; 82272; 82803; 82962; 83036; 83605; 83735; 83880; 83930; 84100; 84484; 85025; 85027; 85610; 85730; 87040; 87635; 92611-GN; 93005; 93010; 93306-TC; 93880-TC; 97116-GP; 97162-GP; 99285-25; J1644

== ENCOUNTER 2024-02-17 15:54 | Inpatient (IN) | payer OTHER ==
[2024-02-17 17:07] LABS: BASO % 0.5 % (0-2.0); EOS % 1.4 % (0-4.5); HEMATOCRIT 31.7 % (35.4-49); HEMOGLOBIN 10.9 GM/dL (11.7-16.9); LYMPH % 11.3 % (8-40); MCH 30.7 pg (25.7-33.7); MCHC 34.5 g/dl (32.0-35.9); MEAN CELL VOLUME 89.2 fl (80-96); MEAN PLT VOLUME 7.7 fl (7.5-11.1); MONO % 8.1 % (3.8-10.2); NEUT % 78.7 % (42.8-82.8); PLATELET COUNT 222 10^3/uL (134-434); RBC 3.56 M/mm3 (4.00-5.60); RDW 13.5 % (11.9-15.9); WHITE BLOOD COUNT 10.4 K/mm3 (4.0-10.0)
[2024-02-17 17:22] LABS: ACTIVATED PTT 31.5 SECONDS (25.2-36.5); INR 1.17 (0.83-1.09); PROTHROMBIN TIME (PATIENT) 13.5 SEC (9.7-13.0)
[2024-02-17 17:25] LABS: POTASSIUM 4.5 mmol/L (3.5-5.1)
[2024-02-17 17:25] LABS: URINE APPEARANCE CLEAR; URINE BILIRUBIN NEGATIVE (NEGATIVE); URINE COLOR YELLOW; URINE GLUCOSE (UA) NEGATIVE (NEGATIVE); URINE KETONE NEGATIVE (NEGATIVE); URINE LEUK ESTERASE NEGATIVE (NEGATIVE); URINE NITRITE NEGATIVE (NEGATIVE); URINE PROTEIN NEGATIVE (NEGATIVE); URINE UROBILINOGEN 0.2 mg/dL (0.2-1.0)
[2024-02-17 17:27] LABS: ALBUMIN 3.5 g/dl (3.4-5.0)
[2024-02-17 17:28] LABS: BLOOD UREA NITROGEN 8.9 mg/dL (7-18)
[2024-02-17 17:30] LABS: CREATININE 0.7 mg/dL (0.55-1.3)
[2024-02-17 17:32] LABS: TOT PROT 6.7 g/dl (6.4-8.2)
[2024-02-17 17:40] LABS: BILIRUBIN,TOTAL 0.6 mg/dL (0.2-1)
[2024-02-17] MEDS: INSULIN ASPART SLIDING SCALE (NOVOLOG) 1 VIAL SQ SCH (22:22)
[2024-02-17] MEDS ORDERED: DEXTROSE 50%-WATER 25 GM/50 ML DISP.SYRIN ONE (22:36)
[2024-02-17] MEDS: DEXTROSE 50%-WATER 25 GM/50 ML DISP.SYRIN IVPUSH ONE (22:36)
[2024-02-18 07:43] LABS: HEMATOCRIT 31.5 % (35.4-49); HEMOGLOBIN 11.2 GM/dL (11.7-16.9); MCH 31.3 pg (25.7-33.7); MCHC 35.5 g/dl (32.0-35.9); MEAN CELL VOLUME 88.3 fl (80-96); MEAN PLT VOLUME 7.9 fl (7.5-11.1); PLATELET COUNT 275 10^3/uL (134-434); RBC 3.57 M/mm3 (4.00-5.60); RDW 13.4 % (11.9-15.9); WHITE BLOOD COUNT 9.1 K/mm3 (4.0-10.0)
[2024-02-18 07:54] LABS: POTASSIUM 3.9 mmol/L (3.5-5.1)
[2024-02-18 08:01] LABS: ALBUMIN 3.6 g/dl (3.4-5.0); BLOOD UREA NITROGEN 8.4 mg/dL (7-18)
[2024-02-18 08:04] LABS: CALCIUM 9.1 mg/dL (8.5-10.1); CREATININE 0.6 mg/dL (0.55-1.3); MAGNESIUM 1.4 mg/dL (1.8-2.4); PHOSPHOROUS 3.8 mg/dL (2.5-4.9)
[2024-02-18 08:06] LABS: BILIRUBIN,TOTAL 0.5 mg/dL (0.2-1); TOT PROT 6.8 g/dl (6.4-8.2)
[2024-02-18] MEDS: ASPIRIN 81 MG CHEWABLE TABLETS PO SCH (11:35)
[2024-02-18] MEDS: HEPARIN NA (PORCINE) 5,000 UNITS/ML 1ML VIAL SQ SCH (11:35)
[2024-02-18] MEDS: METOPROLOL TARTRATE 25 MG TABLET (FP) PO SCH (11:35)
[2024-02-18] MEDS: CLOPIDOGREL BISULFATE 75 MG TABLET (FP) PO SCH (11:35)
[2024-02-18] MEDS: LACTATED RINGERS SOLUTION 1,000 ML/1,000 ML INFUS.BAG IV SCH (16:31)
[2024-02-18] MEDS: ATORVASTATIN CA 80 MG TABLET (FP) PO SCH (22:55)
[2024-02-18] MEDS: MIRTAZAPINE 15 MG TABLET (FP) PO SCH (22:55)
[2024-02-19] MEDS: MAGNESIUM 2GM/50ML STERILE WATER IVPB IVPB ONE (00:19)
[2024-02-19] MEDS: DEXTROSE 5%-NORMAL SALINE 1,000 ML IV SCH (00:19)
[2024-02-19] MEDS: DEXTROSE 50%-WATER 25 GM/50 ML DISP.SYRIN IVPUSH ONE (00:19)
[2024-02-19 07:37] LABS: BASO % 0.5 % (0-2.0); EOS % 1.8 % (0-4.5); HEMATOCRIT 32.5 % (35.4-49); HEMOGLOBIN 11.1 GM/dL (11.7-16.9); LYMPH % 13.2 % (8-40); MCH 30.4 pg (25.7-33.7); MEAN CELL VOLUME 89.4 fl (80-96); MEAN PLT VOLUME 7.8 fl (7.5-11.1); MONO % 9.6 % (3.8-10.2); NEUT % 74.9 % (42.8-82.8); PLATELET COUNT 245 10^3/uL (134-434); RBC 3.64 M/mm3 (4.00-5.60); RDW 13.7 % (11.9-15.9); WHITE BLOOD COUNT 10.4 K/mm3 (4.0-10.0)
[2024-02-19 07:41] LABS: POTASSIUM 3.7 mmol/L (3.5-5.1)
[2024-02-19 07:43] LABS: BLOOD UREA NITROGEN 12.5 mg/dL (7-18); CALCIUM 8.8 mg/dL (8.5-10.1); MAGNESIUM 2.2 mg/dL (1.8-2.4)
[2024-02-19 07:46] LABS: PHOSPHOROUS 4.2 mg/dL (2.5-4.9)
[2024-02-19 07:47] LABS: CREATININE 0.6 mg/dL (0.55-1.3)
[2024-02-19] MEDS: LISINOPRIL 5 MG TABLET PO SCH (10:45)
[2024-02-19] MEDS: NYSTATIN 500,000 UNITS/5 ML SUSPENSION PO SCH (18:15)
[2024-02-19] MEDS: HEPARIN NA (PORCINE) 5,000 UNITS/ML 1ML VIAL SQ SCH (22:03)
[2024-02-20 06:55] LABS: BASO % 0.8 % (0-2.0); EOS % 3.8 % (0-4.5); HEMATOCRIT 27.8 % (35.4-49); HEMOGLOBIN 9.3 GM/dL (11.7-16.9); LYMPH % 22.9 % (8-40); MCH 30.1 pg (25.7-33.7); MCHC 33.3 g/dl (32.0-35.9); MEAN CELL VOLUME 90.3 fl (80-96); MEAN PLT VOLUME 7.7 fl (7.5-11.1); MONO % 11.5 % (3.8-10.2); PLATELET COUNT 224 10^3/uL (134-434); RBC 3.08 M/mm3 (4.00-5.60); RDW 13.4 % (11.9-15.9); WHITE BLOOD COUNT 6.5 K/mm3 (4.0-10.0)
[2024-02-20 07:34] LABS: POTASSIUM 3.6 mmol/L (3.5-5.1)
[2024-02-20 07:40] LABS: CALCIUM 8.2 mg/dL (8.5-10.1)
[2024-02-20 07:41] LABS: BLOOD UREA NITROGEN 9.5 mg/dL (7-18)
[2024-02-20 07:44] LABS: CREATININE 0.6 mg/dL (0.55-1.3)
[2024-02-20 07:45] LABS: BILIRUBIN,TOTAL 0.3 mg/dL (0.2-1)
[2024-02-20 07:46] LABS: TOT PROT 5.6 g/dl (6.4-8.2)
[2024-02-20 07:52] LABS: ALBUMIN 2.8 g/dl (3.4-5.0)
[2024-02-20] MEDS: ASPIRIN 300 MG SUPP.RECT RC SCH (15:57)
[2024-02-20 16:39] LABS: HEMATOCRIT 29.7 % (35.4-49); HEMOGLOBIN 10.1 GM/dL (11.7-16.9); MCH 30.6 pg (25.7-33.7); MEAN CELL VOLUME 90.1 fl (80-96); MEAN PLT VOLUME 7.7 fl (7.5-11.1); PLATELET COUNT 239 10^3/uL (134-434); RBC 3.29 M/mm3 (4.00-5.60); RDW 13.6 % (11.9-15.9); WHITE BLOOD COUNT 6.8 K/mm3 (4.0-10.0)
[2024-02-20] MEDS: INSULIN ASPART SLIDING SCALE (NOVOLOG) 1 VIAL SQ SCH (16:52)
[2024-02-21 07:17] LABS: BASO % 0.7 % (0-2.0); EOS % 3.3 % (0-4.5); HEMATOCRIT 28.7 % (35.4-49); HEMOGLOBIN 9.8 GM/dL (11.7-16.9); LYMPH % 16.1 % (8-40); MCHC 34.2 g/dl (32.0-35.9); MEAN CELL VOLUME 90.6 fl (80-96); MEAN PLT VOLUME 7.8 fl (7.5-11.1); MONO % 10.4 % (3.8-10.2); NEUT % 69.5 % (42.8-82.8); PLATELET COUNT 234 10^3/uL (134-434); RBC 3.16 M/mm3 (4.00-5.60); RDW 13.3 % (11.9-15.9)
[2024-02-21 08:11] LABS: POTASSIUM 3.4 mmol/L (3.5-5.1)
[2024-02-21 08:13] LABS: CALCIUM 8.2 mg/dL (8.5-10.1)
[2024-02-21 08:14] LABS: BLOOD UREA NITROGEN 5.2 mg/dL (7-18)
[2024-02-21 08:17] LABS: CREATININE 0.6 mg/dL (0.55-1.3)
[2024-02-21] MEDS: POTASSIUM CHLORIDE ORAL LIQUID 20 MEQ/15 ML PO ONE (15:36)
[2024-02-21] MEDS: KCL 10 MEQ IVPB 10 MEQ/100 ML INFUS.BAG IVPB SCH (15:41)
[2024-02-22] MEDS: AMINO ACIDS 4.25%/D5W 1,000 ML IV SCH (16:25)
[2024-02-22] MEDS: FLUCONAZOLE 100 MG/NS 50 ML IVPB SCH (18:23)
[2024-02-23 07:18] LABS: BASO % 0.7 % (0-2.0); EOS % 0.9 % (0-4.5); HEMATOCRIT 27.9 % (35.4-49); HEMOGLOBIN 9.6 GM/dL (11.7-16.9); LYMPH % 10.3 % (8-40); MCH 30.4 pg (25.7-33.7); MCHC 34.3 g/dl (32.0-35.9); MEAN CELL VOLUME 88.5 fl (80-96); MEAN PLT VOLUME 7.5 fl (7.5-11.1); MONO % 8.4 % (3.8-10.2); NEUT % 79.7 % (42.8-82.8); PLATELET COUNT 214 10^3/uL (134-434); RBC 3.16 M/mm3 (4.00-5.60); RDW 13.3 % (11.9-15.9); WHITE BLOOD COUNT 11.1 K/mm3 (4.0-10.0)
[2024-02-23 07:47] LABS: ALBUMIN 2.8 g/dl (3.4-5.0); BLOOD UREA NITROGEN 5.8 mg/dL (7-18); CALCIUM 8.1 mg/dL (8.5-10.1)
[2024-02-23 07:50] LABS: CREATININE 0.6 mg/dL (0.55-1.3)
[2024-02-23 07:52] LABS: BILIRUBIN,TOTAL 0.5 mg/dL (0.2-1); TOT PROT 5.4 g/dl (6.4-8.2)
[2024-02-23] MEDS ORDERED: POTASSIUM CHLORIDE ORAL LIQUID 20 MEQ/15 ML GT ONE (08:08)
[2024-02-23] MEDS ORDERED: ACETAMINOPHEN 1000 MG/100 ML BAG IVPB ONE (09:15)
[2024-02-23 10:06] LABS: MAGNESIUM 1.4 mg/dL (1.8-2.4)
[2024-02-23 10:08] LABS: PHOSPHOROUS 3.2 mg/dL (2.5-4.9)
[2024-02-23] MEDS: ACETAMINOPHEN 1000 MG/100 ML BAG IVPB ONE (11:44)
[2024-02-23] MEDS: MAGNESIUM SULF 50% (8.12 MEQ/2 ML-1 GM VIAL) IVPB ONE (13:21)
[2024-02-23] MEDS: POTASSIUM CHLORIDE ORAL LIQUID 20 MEQ/15 ML GT ONE ×2 (15:57→16:32)
[2024-02-23 17:14] LABS: CALCIUM 7.9 mg/dL (8.5-10.1)
[2024-02-23 17:15] LABS: ALBUMIN 2.6 g/dl (3.4-5.0); BLOOD UREA NITROGEN 6.6 mg/dL (7-18); MAGNESIUM 2.1 mg/dL (1.8-2.4)
[2024-02-23 17:18] LABS: CREATININE 0.6 mg/dL (0.55-1.3); PHOSPHOROUS 3.5 mg/dL (2.5-4.9)
[2024-02-23 17:19] LABS: BILIRUBIN,TOTAL 0.6 mg/dL (0.2-1); TOT PROT 5.3 g/dl (6.4-8.2)
[2024-02-24] MEDS: ATORVASTATIN CA 80 MG TABLET (FP) NGT SCH (01:14)
[2024-02-24] MEDS: MIRTAZAPINE 15 MG TABLET (FP) NGT SCH (01:14)
[2024-02-24] MEDS: METOPROLOL TARTRATE 25 MG TABLET (FP) NGT SCH (01:14)
[2024-02-24 07:17] LABS: BASO % 0.4 % (0-2.0); EOS % 0.8 % (0-4.5); HEMATOCRIT 29.9 % (35.4-49); HEMOGLOBIN 10.2 GM/dL (11.7-16.9); LYMPH % 10.9 % (8-40); MCH 30.3 pg (25.7-33.7); MEAN CELL VOLUME 89.1 fl (80-96); MEAN PLT VOLUME 7.9 fl (7.5-11.1); MONO % 7.8 % (3.8-10.2); NEUT % 80.1 % (42.8-82.8); PLATELET COUNT 233 10^3/uL (134-434); POTASSIUM 3.6 mmol/L (3.5-5.1); RBC 3.36 M/mm3 (4.00-5.60); RDW 13.3 % (11.9-15.9); WHITE BLOOD COUNT 11.7 K/mm3 (4.0-10.0)
[2024-02-24 07:21] LABS: CALCIUM 8.6 mg/dL (8.5-10.1)
[2024-02-24 07:22] LABS: ALBUMIN 2.8 g/dl (3.4-5.0); BLOOD UREA NITROGEN 7.8 mg/dL (7-18)
[2024-02-24 07:25] LABS: CREATININE 0.7 mg/dL (0.55-1.3)
[2024-02-24 07:26] LABS: BILIRUBIN,TOTAL 0.7 mg/dL (0.2-1); TOT PROT 5.8 g/dl (6.4-8.2)
[2024-02-25] MEDS: HEPARIN NA (PORCINE) 5,000 UNITS/ML 1ML VIAL SQ SCH (06:12)
[2024-02-25] MEDS: INSULIN ASPART SLIDING SCALE (NOVOLOG) 1 VIAL SQ SCH (06:12)
[2024-02-25 09:20] LABS: BASO % 0.5 % (0-2.0); EOS % 2.1 % (0-4.5); HEMATOCRIT 27.3 % (35.4-49); HEMOGLOBIN 9.4 GM/dL (11.7-16.9); LYMPH % 11.1 % (8-40); MCH 30.7 pg (25.7-33.7); MCHC 34.5 g/dl (32.0-35.9); MEAN CELL VOLUME 89.1 fl (80-96); MONO % 9.7 % (3.8-10.2); NEUT % 76.6 % (42.8-82.8); PLATELET COUNT 198 10^3/uL (134-434); RBC 3.06 M/mm3 (4.00-5.60); RDW 13.6 % (11.9-15.9); WHITE BLOOD COUNT 8.1 K/mm3 (4.0-10.0)
[2024-02-25 09:37] LABS: POTASSIUM 3.4 mmol/L (3.5-5.1)
[2024-02-25 09:39] LABS: CALCIUM 7.9 mg/dL (8.5-10.1)
[2024-02-25 09:40] LABS: ALBUMIN 2.5 g/dl (3.4-5.0)
[2024-02-25 09:43] LABS: CREATININE 0.6 mg/dL (0.55-1.3)
[2024-02-25 09:44] LABS: BILIRUBIN,TOTAL 0.5 mg/dL (0.2-1)
[2024-02-25 09:45] LABS: TOT PROT 5.4 g/dl (6.4-8.2)
[2024-02-25] MEDS: FLUCONAZOLE 100 MG/NS 50 ML IVPB SCH (11:12)
[2024-02-25] MEDS: POTASSIUM CHLORIDE ORAL LIQUID 20 MEQ/15 ML PO ONE (11:14)
[2024-02-25 11:18] LABS: MAGNESIUM 1.7 mg/dL (1.8-2.4)
[2024-02-25] MEDS: LACTATED RINGERS SOLUTION 1,000 ML/1,000 ML INFUS.BAG IV SCH (17:33)
[2024-02-26 08:42] LABS: POTASSIUM 4.1 mmol/L (3.5-5.1)
[2024-02-26 08:44] LABS: CALCIUM 8.4 mg/dL (8.5-10.1)
[2024-02-26 08:45] LABS: BLOOD UREA NITROGEN 10.1 mg/dL (7-18); MAGNESIUM 1.7 mg/dL (1.8-2.4)
[2024-02-26 08:48] LABS: CREATININE 0.6 mg/dL (0.55-1.3)
[2024-02-26] MEDS: MAGNESIUM 2GM/50ML STERILE WATER IVPB IVPB ONE (10:12)
[2024-02-26] MEDS ORDERED: GLUCAGON 1 MG KIT ONE (12:48)
[2024-02-26] MEDS ORDERED: FENTANYL CITRATE/PF 50 MCG/ML VIAL ONE (12:48)
[2024-02-26] MEDS ORDERED: MIDAZOLAM HCL 2 MG/2 ML SINGLE DOSE VIAL ONE (12:48)
[2024-02-26] MEDS: MIDAZOLAM HCL 2 MG/2 ML SINGLE DOSE VIAL IVPUSH ONE ×2 (13:50→14:05)
[2024-02-26] MEDS: FENTANYL CITRATE/PF 50 MCG/ML VIAL IVPUSH ONE ×2 (13:50→14:05)
[2024-02-26] MEDS: hydrALAZINE HCL 25 MG TABLET (FP) NGT ONE (16:15)
[2024-02-26] MEDS: ACETAMINOPHEN 1000 MG/100 ML BAG IVPB PRN (18:18)
[2024-02-28] MEDS: ALBUTEROL SO4 0.083% IH SOL 2.5 MG/3 ML VIAL.NEB. NEB ONE (09:03)
[2024-02-28] MEDS: ACETAMINOPHEN 1000 MG/100 ML BAG IVPB PRN (09:05)
[2024-02-28] MEDS: PIPERACILLIN/TAZOB 4.5 GM 4.5 GM in DEXTROSE 5%-WATER 100 ML IVPB ONE (12:45)
[2024-02-28] MEDS: ASPIRIN 81 MG CHEWABLE TABLETS PO SCH (13:57)
[2024-02-28] MEDS: CLOPIDOGREL BISULFATE 75 MG TABLET (FP) PO SCH (13:57)
[2024-02-28] MEDS: ALBUTEROL SO4 0.083% IH SOL 2.5 MG/3 ML VIAL.NEB. NEB PRN (15:04)
[2024-02-28] MEDS: PIPERACILLIN/TAZOB 3.375 GM 3.375 GM in DEXTROSE 5%-WATER - 50 ML IVPB SCH (18:17)
[2024-02-29] MEDS: PIPERACILLIN/TAZOB 3.375 GM 3.375 GM in DEXTROSE 5%-WATER - 50 ML IVPB SCH (01:46)
[2024-02-29 08:42] LABS: BASO % 0.2 % (0-2.0); HEMATOCRIT 25.5 % (35.4-49); HEMOGLOBIN 8.4 GM/dL (11.7-16.9); LYMPH % 5.4 % (8-40); MCH 29.8 pg (25.7-33.7); MCHC 33.1 g/dl (32.0-35.9); MEAN CELL VOLUME 90.1 fl (80-96); MEAN PLT VOLUME 8.3 fl (7.5-11.1); MONO % 6.3 % (3.8-10.2); NEUT % 88.1 % (42.8-82.8); PLATELET COUNT 241 10^3/uL (134-434); RBC 2.83 M/mm3 (4.00-5.60); RDW 13.8 % (11.9-15.9); WHITE BLOOD COUNT 16.8 K/mm3 (4.0-10.0)
[2024-02-29 09:03] LABS: POTASSIUM 3.2 mmol/L (3.5-5.1)
[2024-02-29 09:04] LABS: ACTIVATED PTT 33.1 SECONDS (25.2-36.5)
[2024-02-29 09:06] LABS: INR 1.28 (0.83-1.09); PROTHROMBIN TIME (PATIENT) 14.8 SEC (9.7-13.0)
[2024-02-29 09:12] LABS: ALBUMIN 2.3 g/dl (3.4-5.0); BLOOD UREA NITROGEN 23.5 mg/dL (7-18); CALCIUM 8.3 mg/dL (8.5-10.1); MAGNESIUM 2.1 mg/dL (1.8-2.4)
[2024-02-29 09:15] LABS: CREATININE 0.8 mg/dL (0.55-1.3); PHOSPHOROUS 4.3 mg/dL (2.5-4.9)
[2024-02-29 09:16] LABS: BILIRUBIN,TOTAL 0.8 mg/dL (0.2-1); TOT PROT 5.5 g/dl (6.4-8.2)
[2024-02-29] MEDS: KCL 10 MEQ IVPB 10 MEQ/100 ML INFUS.BAG IVPB SCH (12:46)
[2024-03-01] MEDS: amLODIPine BESYLATE 10 MG TABLET (FP) PO SCH (15:46)
[2024-03-02] MEDS: ACETAMINOPHEN 1000 MG/100 ML BAG IVPB ONE (04:27)
[2024-03-02 08:35] LABS: HEMATOCRIT 25.1 % (35.4-49); HEMOGLOBIN 8.4 GM/dL (11.7-16.9); MCH 30.1 pg (25.7-33.7); MCHC 33.5 g/dl (32.0-35.9); MEAN CELL VOLUME 89.9 fl (80-96); MEAN PLT VOLUME 8.2 fl (7.5-11.1); PLATELET COUNT 297 10^3/uL (134-434); RBC 2.79 M/mm3 (4.00-5.60); WHITE BLOOD COUNT 11.5 K/mm3 (4.0-10.0)
[2024-03-02 08:51] LABS: POTASSIUM 3.2 mmol/L (3.5-5.1)
[2024-03-02 08:54] LABS: ALBUMIN 2.3 g/dl (3.4-5.0); CALCIUM 8.6 mg/dL (8.5-10.1)
[2024-03-02 08:58] LABS: CREATININE 0.8 mg/dL (0.55-1.3)
[2024-03-02 09:00] LABS: BILIRUBIN,TOTAL 0.7 mg/dL (0.2-1); TOT PROT 5.9 g/dl (6.4-8.2)
[2024-03-02] MEDS: SODIUM CHLORIDE 0.45%/POT 20 MEQ/1,000 ML INFUS.BAG IV SCH (18:54)
[2024-03-03] MEDS: KETOROLAC TROMETHAMINE 15 MG/ML VIAL IM ONE (03:27)
[2024-03-03] MEDS: KETOROLAC TROMETHAMINE 15 MG/ML VIAL IVPUSH ONE (03:39)
[2024-03-03 08:25] LABS: HEMATOCRIT 23.9 % (35.4-49); HEMOGLOBIN 7.9 GM/dL (11.7-16.9); MCH 29.8 pg (25.7-33.7); MCHC 32.9 g/dl (32.0-35.9); MEAN CELL VOLUME 90.5 fl (80-96); MEAN PLT VOLUME 8.2 fl (7.5-11.1); PLATELET COUNT 261 10^3/uL (134-434); RBC 2.64 M/mm3 (4.00-5.60); WHITE BLOOD COUNT 12.6 K/mm3 (4.0-10.0)
[2024-03-03 08:57] LABS: POTASSIUM 3.4 mmol/L (3.5-5.1)
[2024-03-03 09:28] LABS: ALBUMIN 2.1 g/dl (3.4-5.0); BLOOD UREA NITROGEN 29.9 mg/dL (7-18); CALCIUM 8.6 mg/dL (8.5-10.1); MAGNESIUM 2.4 mg/dL (1.8-2.4)
[2024-03-03 09:31] LABS: PHOSPHOROUS 2.6 mg/dL (2.5-4.9)
[2024-03-03 09:32] LABS: TOT PROT 5.6 g/dl (6.4-8.2)
[2024-03-03 09:34] LABS: BILIRUBIN,TOTAL 0.3 mg/dL (0.2-1)
[2024-03-03] MEDS: SODIUM CHLORIDE 0.45%/POT 20 MEQ/1,000 ML INFUS.BAG IV SCH (13:41)
[2024-03-03 15:47] VITALS: BMI 19.0
[2024-03-03] MEDS: POTASSIUM CHLORIDE ORAL LIQUID 20 MEQ/15 ML PO ONE (16:34)
[2024-03-04 08:18] LABS: HEMOGLOBIN 7.8 GM/dL (11.7-16.9); MCH 29.3 pg (25.7-33.7); MCHC 32.4 g/dl (32.0-35.9); MEAN CELL VOLUME 90.3 fl (80-96); MEAN PLT VOLUME 8.9 fl (7.5-11.1); PLATELET COUNT 248 10^3/uL (134-434); RBC 2.66 M/mm3 (4.00-5.60); RDW 13.8 % (11.9-15.9); WHITE BLOOD COUNT 13.1 K/mm3 (4.0-10.0)
[2024-03-04 08:26] LABS: POTASSIUM 3.4 mmol/L (3.5-5.1)
[2024-03-04 08:34] LABS: ALBUMIN 1.9 g/dl (3.4-5.0); CALCIUM 7.9 mg/dL (8.5-10.1)
[2024-03-04 08:35] LABS: BLOOD UREA NITROGEN 29.1 mg/dL (7-18)
[2024-03-04 08:38] LABS: CREATININE 0.8 mg/dL (0.55-1.3)
[2024-03-04 08:39] LABS: BILIRUBIN,TOTAL 0.3 mg/dL (0.2-1); TOT PROT 5.2 g/dl (6.4-8.2)
[2024-03-04] MEDS: POTASSIUM CHLORIDE ORAL LIQUID 20 MEQ/15 ML PEG ONE (13:10)
[2024-03-04] MEDS: POTASSIUM CHLORIDE TABS 20 MEQ TABLET.ER (FP) PO ONE (13:11)
[2024-03-05 08:54] LABS: HEMATOCRIT 23.4 % (35.4-49); HEMOGLOBIN 7.9 GM/dL (11.7-16.9); MCHC 33.7 g/dl (32.0-35.9); MEAN CELL VOLUME 89.1 fl (80-96); MEAN PLT VOLUME 9.4 fl (7.5-11.1); PLATELET COUNT 233 10^3/uL (134-434); RBC 2.63 M/mm3 (4.00-5.60); RDW 13.5 % (11.9-15.9); WHITE BLOOD COUNT 12.3 K/mm3 (4.0-10.0)
[2024-03-05 09:03] LABS: POTASSIUM 4.1 mmol/L (3.5-5.1)
[2024-03-05 09:30] LABS: CALCIUM 7.9 mg/dL (8.5-10.1)
[2024-03-05 09:31] LABS: ALBUMIN 1.9 g/dl (3.4-5.0); BLOOD UREA NITROGEN 27.2 mg/dL (7-18)
[2024-03-05 09:34] LABS: CREATININE 0.8 mg/dL (0.55-1.3)
[2024-03-05 09:36] LABS: BILIRUBIN,TOTAL 0.5 mg/dL (0.2-1); TOT PROT 5.1 g/dl (6.4-8.2)
[2024-03-05] MEDS: ACETAMINOPHEN 1000 MG/100 ML BAG IVPB PRN (21:22)
[2024-03-06] MEDS: DOCUSATE SODIUM 100 MG CAPSULE (FP) PO SCH (13:55)
[2024-03-06] MEDS: POLYETHYLENE GLYCOL (HEALTHYLAX) 3350 17 GM PACKET PO SCH (13:56)
[2024-03-06] MEDS: DOCUSATE NA 100 MG/10 ML UNIT-DOSE CUPS PO SCH (21:52)
[2024-03-07 10:00] LABS: BASO % 0.3 % (0-2.0); EOS % 0.8 % (0-4.5); HEMATOCRIT 22.5 % (35.4-49); HEMOGLOBIN 7.4 GM/dL (11.7-16.9); LYMPH % 5.4 % (8-40); MCH 29.3 pg (25.7-33.7); MEAN CELL VOLUME 88.7 fl (80-96); MEAN PLT VOLUME 10.4 fl (7.5-11.1); MONO % 4.7 % (3.8-10.2); NEUT % 88.8 % (42.8-82.8); PLATELET COUNT 231 10^3/uL (134-434); RBC 2.54 M/mm3 (4.00-5.60); RDW 13.7 % (11.9-15.9); WHITE BLOOD COUNT 17.9 K/mm3 (4.0-10.0)
[2024-03-07 10:21] LABS: POTASSIUM 3.9 mmol/L (3.5-5.1)
[2024-03-07 10:27] LABS: CALCIUM 8.2 mg/dL (8.5-10.1)
[2024-03-07 10:28] LABS: ALBUMIN 1.8 g/dl (3.4-5.0); BLOOD UREA NITROGEN 21.3 mg/dL (7-18); CREATININE 0.7 mg/dL (0.55-1.3)
[2024-03-07 10:30] LABS: BILIRUBIN,TOTAL 0.4 mg/dL (0.2-1)
[2024-03-07] MEDS ORDERED: guaiFENesin/D-METHORPHAN HB 10 ML UNIT-DOSE CUPS PEG PRN (14:42)
[2024-03-07] MEDS: AMINO ACIDS 4.25%/D5W 1,000 ML IV SCH (15:08)
[2024-03-08 09:50] LABS: HEMATOCRIT 23.2 % (35.4-49); HEMOGLOBIN 7.8 GM/dL (11.7-16.9); MCH 29.7 pg (25.7-33.7); MCHC 33.6 g/dl (32.0-35.9); MEAN CELL VOLUME 88.4 fl (80-96); MEAN PLT VOLUME 10.6 fl (7.5-11.1); PLATELET COUNT 228 10^3/uL (134-434); RBC 2.62 M/mm3 (4.00-5.60); RDW 14.1 % (11.9-15.9); WHITE BLOOD COUNT 14.3 K/mm3 (4.0-10.0)
[2024-03-08] MEDS: FLUCONAZOLE 100 MG TABLET (UD) PEG SCH (09:53)
[2024-03-08 10:15] LABS: POTASSIUM 3.8 mmol/L (3.5-5.1)
[2024-03-08 10:16] LABS: CALCIUM 7.9 mg/dL (8.5-10.1)
[2024-03-08 10:17] LABS: ALBUMIN 1.8 g/dl (3.4-5.0); BLOOD UREA NITROGEN 17.2 mg/dL (7-18)
[2024-03-08 10:20] LABS: CREATININE 0.6 mg/dL (0.55-1.3)
[2024-03-08 10:22] LABS: BILIRUBIN,TOTAL 0.4 mg/dL (0.2-1); TOT PROT 5.1 g/dl (6.4-8.2)
[2024-03-08] MEDS: NYSTATIN 500,000 UNITS/5 ML SUSPENSION PO SCH (12:37)
[2024-03-09 10:09] LABS: HEMATOCRIT 23.6 % (35.4-49); MCH 30.2 pg (25.7-33.7); MCHC 33.9 g/dl (32.0-35.9); MEAN CELL VOLUME 89.1 fl (80-96); MEAN PLT VOLUME 9.8 fl (7.5-11.1); PLATELET COUNT 309 10^3/uL (134-434); RBC 2.65 M/mm3 (4.00-5.60); RDW 13.5 % (11.9-15.9); WHITE BLOOD COUNT 12.4 K/mm3 (4.0-10.0)
[2024-03-09 10:32] LABS: POTASSIUM 3.8 mmol/L (3.5-5.1)
[2024-03-09 10:36] LABS: ALBUMIN 1.8 g/dl (3.4-5.0); CALCIUM 7.9 mg/dL (8.5-10.1)
[2024-03-09 10:39] LABS: CREATININE 0.6 mg/dL (0.55-1.3)
[2024-03-09 10:41] LABS: BILIRUBIN,TOTAL 0.4 mg/dL (0.2-1); TOT PROT 5.1 g/dl (6.4-8.2)
[2024-03-09] MEDS: FLUCONAZOLE 200 MG/NS 100 ML IVPB ONE (11:08)
[2024-03-10 08:34] LABS: HEMATOCRIT 22.9 % (35.4-49); HEMOGLOBIN 7.9 GM/dL (11.7-16.9); MCH 30.1 pg (25.7-33.7); MCHC 34.4 g/dl (32.0-35.9); MEAN CELL VOLUME 87.5 fl (80-96); MEAN PLT VOLUME 9.3 fl (7.5-11.1); PLATELET COUNT 341 10^3/uL (134-434); RBC 2.61 M/mm3 (4.00-5.60); RDW 13.9 % (11.9-15.9); WHITE BLOOD COUNT 12.7 K/mm3 (4.0-10.0)
[2024-03-10 09:02] LABS: ALBUMIN 1.9 g/dl (3.4-5.0); BILIRUBIN,TOTAL 0.3 mg/dL (0.2-1); CALCIUM 7.8 mg/dL (8.5-10.1); CREATININE 0.6 mg/dL (0.55-1.3); POTASSIUM 3.4 mmol/L (3.5-5.1); TOT PROT 5.2 g/dl (6.4-8.2)
[2024-03-10] MEDS: FLUCONAZOLE 40 MG/ML SUSPENSION PEG SCH (14:24)
[2024-03-11 14:09] LABS: HEMATOCRIT 25.7 % (35.4-49); HEMOGLOBIN 8.7 GM/dL (11.7-16.9); MCH 30.4 pg (25.7-33.7); MCHC 33.9 g/dl (32.0-35.9); MEAN CELL VOLUME 89.5 fl (80-96); MEAN PLT VOLUME 8.8 fl (7.5-11.1); PLATELET COUNT 397 10^3/uL (134-434); RBC 2.87 M/mm3 (4.00-5.60); WHITE BLOOD COUNT 9.5 K/mm3 (4.0-10.0)
[2024-03-11 14:37] LABS: CALCIUM 8.7 mg/dL (8.5-10.1)
[2024-03-11 14:38] LABS: ALBUMIN 2.1 g/dl (3.4-5.0); BLOOD UREA NITROGEN 16.4 mg/dL (7-18)
[2024-03-11 14:41] LABS: CREATININE 0.7 mg/dL (0.55-1.3)
[2024-03-11 14:42] LABS: BILIRUBIN,TOTAL 0.2 mg/dL (0.2-1); TOT PROT 5.9 g/dl (6.4-8.2)
[2024-03-12 08:55] LABS: POTASSIUM 4.2 mmol/L (3.5-5.1)
[2024-03-12 09:00] LABS: CALCIUM 8.3 mg/dL (8.5-10.1)
[2024-03-12 09:01] LABS: ALBUMIN 1.9 g/dl (3.4-5.0); BLOOD UREA NITROGEN 17.4 mg/dL (7-18)
[2024-03-12 09:03] LABS: CREATININE 0.7 mg/dL (0.55-1.3)
[2024-03-12 09:05] LABS: BILIRUBIN,TOTAL 0.2 mg/dL (0.2-1); TOT PROT 5.3 g/dl (6.4-8.2)
[2024-03-12 11:10] VITALS: TEMP 98.5
[2024-03-12 14:19] VITALS: BP 122/53; PULSE 61; RESP 18
== END 2024-03-12 15:55 | DRG 64 ==
LOC: JER 15:54 → JERBED 18:47 → OBSVTOIN 20:06 → J4W 23:52 → J5S 02-24 22:54
PROVIDERS: ADMIT Internal Medicine; ATTEND Internal Medicine
PROC: 0DH67UZ Insertion of Feeding Device into Stomach, Via Natural or Artificial Opening (ICD-10-PCS; principal; 2024-02-26)
DX: I63.9 Cerebral infarction, unspecified (principal); E43 Unspecified severe protein-calorie malnutrition; J69.0 Pneumonitis due to inhalation of food and vomit; I69.354 Hemiplegia and hemiparesis following cerebral infarction affecting left non-dominant side; J93.9 Pneumothorax, unspecified; B37.0 Candidal stomatitis; I50.20 Unspecified systolic (congestive) heart failure; Z68.1 Body mass index [BMI] 19.9 or less, adult; R64 Cachexia; J98.11 Atelectasis; E87.0 Hyperosmolality and hypernatremia; I69.392 Facial weakness following cerebral infarction; I10 Essential (primary) hypertension; E78.5 Hyperlipidemia, unspecified; F10.20 Alcohol dependence, uncomplicated; F17.210 Nicotine dependence, cigarettes, uncomplicated; E11.649 Type 2 diabetes mellitus with hypoglycemia without coma; R47.01 Aphasia; F03.90 Unspecified dementia, unspecified severity, without behavioral disturbance, psychotic disturbance, mood disturbance, and anxiety; I11.0 Hypertensive heart disease with heart failure; R13.10 Dysphagia, unspecified; I25.10 Atherosclerotic heart disease of native coronary artery without angina pectoris; Z95.1 Presence of aortocoronary bypass graft; R74.01 Elevation of levels of liver transaminase levels; D72.829 Elevated white blood cell count, unspecified; E87.6 Hypokalemia; E83.42 Hypomagnesemia; R62.7 Adult failure to thrive
CPT/HCPCS: 0241U-QW; 36415; 49440; 70450-TC; 70496-TC; 70498-TC; 70544-TC; 70551-TC; 71045-TC-FY; 74018-TC-FY; 74021-TC-FY; 74150-TC; 80048; 80053; 80061; 81003; 82550; 82607; 82746; 82962; 83036; 83735; 84100; 84146; 84439; 84443; 84480; 84481; 84484; 85025; 85027; 85610; 85730; 86850; 86900; 86901; 87040; 93005; 93010; 93306-TC; 94010; 94640; 97116-GP; 97162-GP; 99285-25; G0378; J0131; J1644; J3480; Q9967